=== PATIENT | female | born 1995 | race Hispanic/Latino ===

== ENCOUNTER 2021-03-16 15:41 | Outpatient (CLI) | payer OTHER, SELFPAY ==
--- NOTE | ~2021-03-16 | US_ITS ---
EXAMINATION: US OB follow up DATE: 03/16/2021 16:27 INDICATION: Supervision of normal during third trimester TECHNIQUE: Real-time ultrasound of the pelvis was performed. The interpreting radiologist was not pre sent for the study. COMPARISON: None. FINDINGS: There is a single living fetus in breech presentation. The placenta is fundal. heart rate is 1 47 beats per minute (bpm). Normal cervical length of 4.2 cm. The amniotic fluid index is 16.9 cm, wh ich is normal (5th%-95%: 8.8-23.8 cm at 31 weeks estimated gestational age). The following biometric data were obtained: BPD: 8.3 cm -> 33 weeks 3 days Head circumference: 31.3 cm -> 35 weeks 0 days Abdominal circumference: 27.7 cm -> 31 weeks 5 days Femur length: 6.2 cm -> 31 weeks 6 days These measurements are concordant. Head circumference to abdominal circumference ratio: 1.13 (normal range 0.96-1.11). Estimated weight: 1936 g (+/-) 290 g or 4 lbs. 4 oz. (+/-) 10 oz. IMPRESSION: 1. Single living fetus in breech presentation with heart rate of 147 bpm. 2. Gestational age by ultrasound of 33 weeks 0 day(s) +/- 2 week(s) 2 day(s) with ultrasound estimate d date of delivery (FITZ) of 05/04/2021. Estimated weight is 57th percentile by Hadlock criteria w hen 05/13/2021 is used as the FITZ. Please correlate with clinical information or earlier ultrasounds f or most accurate FITZ. 3. Normal amniotic fluid index of 16.9 cm. Reviewed, dictated and finalized at location A. [facility] IMPRESSION: 1. Single living fetus in breech presentation with heart rate of 147 bpm. 2. Gestational age by ultrasound of 33 weeks 0 day(s) +/- 2 week(s) 2 day(s) wi th ultrasound estimated date of delivery (FITZ) of 05/04/2021. Estimated nate ght is 57th percentile by Hadlock criteria when 05/13/2021 is used as the FITZ. P lease correlate with clinical information or earlier ultrasounds for most accur ate FITZ. 3. Normal amniotic fluid index of 16.9 cm.
== END 2021-03-16 15:42 | disposition home or self-care (01) ==
PROVIDERS: PCP Obstetrics & Gynecology; Visit Provider Obstetrics & Gynecology
DX: Z34.93 Encounter for supervision of normal pregnancy, unspecified, third trimester (principal); Z3A.33 33 weeks gestation of pregnancy
CPT/HCPCS: 76816